=== PATIENT | male | born 1995 | race Caucasian/White ===

== ENCOUNTER 2019-11-25 21:45 | Emergency (ER) | payer OTHER ==
[~2019-11-25] VITALS: Ht 185.4 cm; Wt 67.3 kg
--- NOTE | 2019-11-25 23:59 | REPVR ---
PROCEDURE INFORMATION: Exam: CT Maxillofacial Without Contrast, Sinus Exam date and time: 11/25/2019 11:27 PM Age: 24 years old Clinical indication: Injury or trauma; Injury history: Poked in left eye by hammer as it fell off a shelf/not a blow; Initial encounter; Blunt trauma (contusions or hematomas); Ocular (eye or eyeball); Additional info: Hammer to left eye, R/O FX TECHNIQUE: Imaging protocol: CT Maxillofacial without contrast. Focus on the sinuses. Radiation optimization: All CT scans at this facility use at least one of these dose optimization techniques: automated exposure control; mA and/or kV adjustment per patient size (includes targeted exams where dose is matched to clinical indication); or iterative reconstruction. COMPARISON: No relevant prior studies available. FINDINGS: Frontal sinuses: Normal. No air-fluid levels. Ethmoid air cells: Normal. No air-fluid levels. Sphenoid sinuses: Normal. No air-fluid levels. Maxillary sinuses: Minimal maxillary sinus mucosal thickening. Orbits: Orbits are normal. Globes are unremarkable. Nasal cavity/Septum: Unremarkable. Soft tissues: Unremarkable. Bones/joints: Unremarkable. IMPRESSION: No acute osseous abnormality. Electronically signed by: Jay Armstrong On 11/25/2019 23:59:40 PM
[2019-11-26] MEDS ORDERED: TETRACAINE 0.5% OPHTH SOLN 4ML OS ONE (00:15)
[2019-11-26] MEDS ORDERED: FLUORESCEIN OPHTH 1 MG STRIP OS ONE (00:15)
[2019-11-26] MEDS ORDERED: ERYT5OIN25 OS (00:56)
[2019-11-26] MEDS ORDERED: ERYTHROMYCIN OPHTH OINT OS ONE (01:00)
[2019-11-26 01:03] VITALS: BP 116/71
== END 2019-11-26 01:06 | disposition home or self-care (01) ==
LOC: M ED 21:45
DX: S05.02XA Injury of conjunctiva and corneal abrasion without foreign body, left eye, initial encounter (principal); S05.12XA Contusion of eyeball and orbital tissues, left eye, initial encounter; H11.32 Conjunctival hemorrhage, left eye; W20.8XXA Other cause of strike by thrown, projected or falling object, initial encounter; W27.8XXA Contact with other nonpowered hand tool, initial encounter; Y92.015 Private garage of single-family (private) house as the place of occurrence of the external cause; Y93.9 Activity, unspecified; Y99.9 Unspecified external cause status

== ENCOUNTER → 2020-06-21 | Outpatient (CLI) | payer SELFPAY ==
[~2020-06-21] MED LIST: ERYT5OIN25 OS
== END ==
LOC: M LABSMTC 14:12
PROVIDERS: ATTEND Pediatrics
DX: Z20.828 Contact with and (suspected) exposure to other viral communicable diseases (principal)

== ENCOUNTER → 2020-07-04 | Outpatient (CLI) | payer SELFPAY | LOC: M LABSMTC 10:46 | PROVIDERS: ATTEND Pediatrics | DX: Z20.822 Contact with and (suspected) exposure to COVID-19 (principal) ==

== ENCOUNTER → 2020-08-05 | Outpatient (CLI) | payer SELFPAY | LOC: M LABSMTC 14:03 | PROVIDERS: ATTEND Pediatrics | DX: Z11.52 Encounter for screening for COVID-19 (principal) ==

== ENCOUNTER → 2020-08-10 | Outpatient (CLI) | payer SELFPAY | LOC: M LABSMTC 14:08 | PROVIDERS: ATTEND Pediatrics | DX: Z11.52 Encounter for screening for COVID-19 (principal) ==